=== PATIENT | male | born 1980 | race Caucasian/White ===

== ENCOUNTER 2021-01-20 00:38 | Emergency (ER) | payer MEDICAID, OTHER ==
[~2021-01-20] VITALS: Ht 188 cm; Wt 85.3 kg
[2021-01-20 00:41] VITALS: BP 140/111
== END 2021-01-20 01:30 | disposition left against medical advice (07) ==
LOC: ER 00:38
DX: R07.9 Chest pain, unspecified (principal); R20.2 Paresthesia of skin; R42 Dizziness and giddiness; Z53.21 Procedure and treatment not carried out due to patient leaving prior to being seen by health care provider
CPT/HCPCS: 93005